=== PATIENT | male | born 1940 | race Caucasian/White ===

== ENCOUNTER 2018-08-07 06:35 | Observation (INO) | payer OTHER ==
[~2018-08-07] VITALS: Ht 180.3 cm; Wt 81.6 kg
[~2018-08-07 06:35] MED LIST: ALDACTONE25 MG PO; CLARITIN10 MG PO; COREG6.25 MG PO; COZAAR 25 MG TA25 M2 PO; CRESTOR10 MG PO; FLOMAX0.4 MG PO; LASIX 20 MG TAB20 MG PO; PACERONE 200 M200 M1 PO; PROSCAR 5MG TABL5 MG PO; SIMVASTATIN40 MG PO; ZOCOR20 MG PO
[2018-08-07 06:57] VITALS: BP 112/63
[2018-08-07 07:08] LABS: ABSOLUTE NEUTROPHILS 3.7 thou/uL (1.4-8.2); EOSINOPHILS 4.3 % (0.0-3.0); HEMATOCRIT 42.5 % (42.0-52.0); HEMOGLOBIN 14.3 gm/dL (14.0-18.0); LYMPHOCYTES 21.7 % (24.0-44.0); MCH 28.7 pg (26.0-34.0); MCHC 33.6 g/dL (28.0-37.0); MCV 85.3 fL (80.0-100.0); MONOCYTES 9.2 % (1.0-8.0); PLATELET COUNT 191 thou/uL (150-400); POLYS 63.8 % (36.0-66.0); RBC 4.98 mil/uL (4.50-6.00); WBC 5.9 thou/uL (4.0-11.0)
[2018-08-07 07:10] LABS: CALCIUM 9.2 mg/dL (8.5-10.1); CREATININE 1.5 mg/dL (0.7-1.3); POTASSIUM 3.1 mmol/L (3.5-5.1)
[2018-08-07 07:16] LABS: ALBUMIN 3.6 g/dL (3.4-5.0); TOTAL BILIRUBIN 0.8 mg/dL (<0.1-1.0); TOTAL PROTEIN 7.1 g/dL (6.4-8.2)
[2018-08-07 07:19] LABS: APTT 28.9 Seconds (24.5-32.8); INR 1.1; PROTIME 11.2 Seconds (9.3-11.4)
[2018-08-07 13:30] VITALS: BP 110/60
[2018-08-07 20:11] VITALS: BP 108/65
[2018-08-08 00:05] VITALS: BP 98/59
[2018-08-08 06:36] VITALS: BP 100/54
[2018-08-08 07:19] LABS: CALCIUM 8.6 mg/dL (8.5-10.1); CREATININE 1.4 mg/dL (0.7-1.3); POTASSIUM 3.2 mmol/L (3.5-5.1)
[2018-08-08] MEDS ORDERED: ZAROXOLYN 5MG TA5 MG PO (08:41)
[2018-08-08] MEDS ORDERED: K-DUR10 MEQ (08:43)
[2018-08-08 08:45] VITALS: BP 108/60
[2018-08-08] MEDS ORDERED: FINASTERIDE5 MG PO (09:04)
[2018-08-08] MEDS ORDERED: ELIQUIS5 MG PO (09:58)
[2018-08-08 11:33] VITALS: BP 107/59
--- NOTE | 2018-08-08 12:41 | P ---
[facility] [place] [address] PROCEDURE REPORT Name: JOSE A CAAL Room #: 214-P [facility] M.R.#: [id number] Admission: 08/07/18 ������������������ Attend Phys: Benjamin Mcgregor MD Discharge: ������������������ Date of : 40 Report #: [id number] THIS REPORT FOR: //name// CC: Claudio Monroy PREOPERATIVE DIAGNOSIS: Nonischemic cardiomyopathy. POSTOPERATIVE DIAGNOSIS: Nonischemic cardiomyopathy. PROCEDURE PERFORMED: Dual chamber ICD implantation. INDICATIONS: The patient is a 78-year-old with history of nonischemic cardiomyopathy, [place] [employer] functional class 2-3 heart failure symptoms and QRS duration of 150 milliseconds here for ICD implantation. ANESTHESIA: MAC anesthesia with no anesthesia related complications. DESCRIPTION OF PROCEDURE: The patient underwent informed consent. We discussed the details of the procedure including the risks, which include but not limited to bleeding, infection, vascular damage, cardiac perforation and pneumothorax. He understood these risks and is willing to proceed. The patient was brought to the EP laboratory in a fasting and unsedated state, prepped and draped in a sterile fashion, underwent venogram showing patency of the left axillary vein. He received IV antibiotics prior to initiation of the procedure. Next, I injected lidocaine below the level of clavicle. Incision was made, pocket was created over the prepectoral fascia and access was obtained three times to the left axillary vein using the extrathoracic approach with sheaths positioned using the modified Seldinger technique. Next, leads were positioned into the right ventricular apex and right atrial appendage both with adequate pacing and sensing thresholds. I did have to move the atrial lead once as there was very small P waves throughout the atrium. Next, a coronary sinus guide sheath was placed into the right atrium and we quickly obtained access to the coronary sinus and a formal balloon venogram was performed. This showed that he had one posterolateral branch that only filled retrograde. The takeoff with the coronary sinus was essentially 180 degrees. Therefore, it was a U turn to get into this vessel. There were a few small anterolateral branches one of which was an AIV and there was a small anterolateral branch. I initially tried to obtain access to this posterolateral branch using the Biotronik quadripolar lead. This was not successful. I then used an inner 90-degree sheath to see if this would allow me to engage this branch. However, I could not get a wire to go down into this vessel as it was essentially going backwards into the coronary sinus. I therefore attempted to place a quadripolar lead into the anterolateral branch and this was also [facility] [address] [place] [address] PROCEDURE REPORT Name: JOSE A CAAL Room #: 214-P [facility] M.R.#: [id number] Admission: 08/07/18 ������������������ Attend Phys: Benjamin Mcgregor MD Discharge: ������������������ Date of : 40 Report #: [id number] unsuccessful. This was a very small vessel. Therefore, we attempted to engage both of these vessels using a St. Bro bipolar lead. After extended period of attempting to obtain access to these vessels, I was not making any further progress. As such, further attempts were discontinued. I pulled the coronary sheaths and held pressure. The prior leads had been sutured to the prepectoral fascia using Ethibond suture. The atrial and the ICD lead were connected to the defibrillator, tested and found to be functioning normally. I decided against placing a Bi-V ICD can in the pocket due to his extensive LV dilatation and it seemed unlikely that he was going to derive reverse remodeling from an epicardial LV lead. The device was programmed to the DDD 60-120 mode. The VT zone was set at 180-220 beats per minute with 3 rounds of burst followed by 3 rounds of ramp followed by max output shocks. The VF zone was set at greater than 220 beats per minute with ATP while charging followed by max output shocks. The implanted defibrillator was a Biotronik model #139803, serial #[id number]. The atrial lead was a Biotronik Solia model #[id number] with a P-wave of 3.8 millivolts, pacing impedance of 493 ohms and a pacing threshold 0.9 volts at 0.4 milliseconds. The RV lead was a Biotronik Plexa, serial #[id number] with R-wave of 11.3 millivolts, pacing impedance of 500 ohms and a pacing threshold of 0.6 volts at 0.4 milliseconds. The LV leads that were not implanted included a Biotronik Sentus model #[id number] and the St. Bro model #1258, serial #[id number]. CONCLUSIONS: 1. Successful dual-chamber ICD implantation. 2. Satisfactory atrial and ventricular pacing and sensing thresholds. ��������������������������������������������� <ELECTRONICALLY SIGNED> ���������������������������������������� By: Benjamin Mcgregor MD ��������������������������������������������� 08/08/18 1241 1223 [id number] Benjamin Mcgregor MD /nt
[2018-08-08 15:10] VITALS: BP 107/59
[2018-08-08 15:54] VITALS: BP 107/59
== END 2018-08-08 15:55 | disposition home or self-care (01) ==
LOC: CATH 06:35 → 2N 12:39 → ENTRNSPT 08-08 15:33 → EDTRNSPTSTS 08-08 15:37 → 2N 08-08 15:55
PROVIDERS: ADMIT Internal Medicine Cardiovascular Disease
DX: I42.9 Cardiomyopathy, unspecified (principal); I48.0 Paroxysmal atrial fibrillation; E78.5 Hyperlipidemia, unspecified; I48.92 Unspecified atrial flutter; Z79.899 Other long term (current) drug therapy